=== PATIENT | male | born 1955 | race Caucasian/White ===

== ENCOUNTER → 2020-12-18 10:20 | Outpatient (BNVA) | payer OTHER, SELFPAY | PROVIDERS: PCP Nurse Practitioner Family; Visit Provider Urology | DX: N40.1 Benign prostatic hyperplasia with lower urinary tract symptoms (principal); N13.8 Other obstructive and reflux uropathy; R97.20 Elevated prostate specific antigen [PSA] | CPT/HCPCS: 99212 ==

== ENCOUNTER → 2021-04-12 10:06 | Outpatient (BNVA) | payer OTHER, SELFPAY | PROVIDERS: PCP Nurse Practitioner Family; Visit Provider Urology ==

== ENCOUNTER 2021-05-20 08:47 | Day surgery (SDC) | payer OTHER, SELFPAY ==
[2021-05-13 15:43] VITALS: BMI 27.9
[2021-05-20] VITALS (7 sets, daily range): BP systolic 128–146; BP diastolic 77–87; PULSE 58–90; RESP 12–18; TEMP 36.3–36.5; O2SAT 95–98
[2021-05-20] MEDS: Lactated Ringers 1,000 ML 50 ML IVCONT (09:36)
--- NOTE | 2021-05-20 09:46 | HO.ANESPROP2 ---
HPI - Anesthesia Eval Consult details Narrative: 65 M for laser ablation CAD s/p Stent , September 2020 , saw hospice home health aide 1 month ago . asprin 7 PM last night Reema PMFSH Active Problems Active Problems: All Active Problems (Updated 05/13/21 @ 15:37 by Ashia Gentile RN) BPH w urinary obs/LUTS (Acute) Elevated PSA (Acute) Past Medical History Medical History (Updated 05/13/21 @ 15:37 by Ashia Gentile RN) Elevated PSA Hematospermia Hypothyroid Family History Family history of problems with anesthesia: No Surgical History History of Problems with Anesthesia: No Meds Allergies Allergy/AdvReac Type Severity Reaction Status Date / Time No Known Allergies Allergy Verified 12/18/20 10:52 Active Medications: Current Medications Fentanyl (Fentanyl Citrate/Pf 100 Mcg/2 Ml Vial) 25 mcg IVPUSH Q5M PRN; Protocol PRN Reason: Pain, Moderate (Pain Scale 4-6 Levofloxacin (Levaquin) 500 mg in 100 mls @ 100 mls/hr IV PREOP ONE Stop: 05/20/21 10:11 Lactated Ringer's (Lr) 1,000 mls @ 50 mls/hr IVCONT .Q20H HADLEY Last Admin: 05/20/21 09:36 Dose: 50 mls/hr Documented by: Promethazine HCl 12.5 mg/ (Sodium Chloride) 50.5 mls @ 202 mls/hr IV ONCE PRN PRN Reason: Nausea and Vomiting Home Medications Medication Instructions Recorded Confirmed Last Taken Type levothyroxine 75 mcg capsule 75 mcg PO DAILY 12/18/20 12/21/20 05/20/21 History lipase 3,000-protease PO 12/18/20 12/21/20 Unknown History 9,500-amylase 15,000 unit capsule, delayed rel (Creon) mirtazapine 30 mg tablet 30 mg PO BEDTIME 12/18/20 12/21/20 Unknown History tamsulosin 0.4 mg capsule (Flomax) 0.4 mg PO DAILY 12/18/20 12/21/20 Unknown History Exam Exam Date and Time: May 20, 2021 0946 Height,Weight and Vital Signs: Height 5 ft 10 in Weight 88.451 kg Last Vital Signs Temp 97.6 F 05/20/21 09:15 Pulse 58 01/17/22 09:15 Resp 18 05/20/21 09:15 BP 137/78 05/20/21 09:15 Pulse Ox 98 05/20/21 09:15 Airway Mallampati Class: II TM Dist: >3cm Neck ROM: Full Loose/Missing/Broken Teeth: Yes (Chipped , missing ,fillings ) Heart: rrr Lungs: bl breath sounds Assessment and Plan Final Anesthetic Review Family History of Problems with Anesthesia: No History of Problems with Anesthesia: No NPO: Yes ASA Class: III Final Preanesthetic Review: Meds/Allgs Chart Reviewed and Anes Risks/Benef Reviewed Patient Risk: High Procedure Risk: Intermediate Anesthetic Plan Anesthetic Plan: GA Disposition: Standard PACU
--- NOTE | 2021-05-20 10:09 | P.HPSUR_ITS ---
Pre-Procedural Eval Section A Date of Service: 05/20/21 The patient is an INPATIENT: No Changes since office visit: No Cold of Flu in the past 2 weeks, No New Medical Problems, No Changes in Medication and No Patient answered all questions The History & Physical has been completed within 30 days and I have reviewed it.: No Section B Chief Complaint: benign prostatic hyperplasia Details of Present Illness: Progressive despite medication Relevant Social History: None Present Medications: see Short Stay Collaborative assessment Medical History: No relevant PMH History of Previous Operations: No relevant previous surgery Allergies: Allergies Allergy/AdvReac Type Severity Reaction Status Date / Time No Known Allergies Allergy Verified 12/18/20 10:52 Review of Systems Sugical H&P ROS: Negative: Constitution, Cardiovascular, Respiratory, Neurological, Psychiatric, Hem-Onc, Allergic/Immunologic, Gastrointestinal, Genitourinary, Musculoskeletal, Integumentary, Endocrine and Eyes/Ear s/Nose/Throat Exam Surgical H&P Exam: Normal: HEENT, Normal: Heart, Normal: Lungs, Normal: Extremities, Normal: Abdomen, Normal: Skin and Normal: Neurological Plan Diagnosis/Plan: Unchanged (Laser prostatectomy) I have reviewed the history and physical and performed a pertinent physical examination on my patient. No changes have occurred unless specified.
--- NOTE | 2021-05-20 11:45 | P.OP_ITS ---
Operative Note Operative Note Date of Service: 05/20/21 Narrative: PreOperative Diagnosis: Bladder outlet obstruction Post Operative Diagnosis: Bladder outlet obstruction Procedure: GreenLight laser enucleation of the prostate Surgeon: Dr Richie Rossi Anesthesia: General Indications for procedure: History of bladder outlet obstruction. Treated with alpha-maru and other medications. Still with symptoms. On cystoscopy in office has Large median lobe with bilateral lateral lobe . Recommendation for laser procedure with enucleation of the prostate. Procedure: After informed consent was verified the patient was brought to the operating room and placed in a supine position. Anesthesia was administered per protocol. Patient was placed in modified dorsal lithotomy position and prepped and draped in a sterile fashion. Safety pause time-out was confirmed. Antibiotics have been given. Twenty-four Luxembourgish laser cystoscope was inserted per urethra. No abnormalities found the anterior posterior urethra. The bladder was filled on both ureteric orifices were seen in normal position away from our area of interest. Using a GreenLight laser settings of 80 w incisions were made at the 5 and 7 o'clock position. They were taken down and then laterally on each side. They were brought from the bladder neck down to the level of the veru. These defined the lateral aspects of the median lobe area. The median lobe was ablated and enucleated tissue removed. Median lobe was large and required division down the middle followed by lateral slicing of the prostate into smaller pieces. Once the median lobe area had been cleaned attention was directed to the lateral lobes. We started with the patient's left lateral lobe. Firstly the 05:00 o'clock groove was further developed. This was moved in the lateral position to undermine the tissue on the lateral side. Focus was then placed on the laser at the 1 o'clock position in developing a secondary groove down to the level of bladder fibers. The intervening tissue between these 2 grooves was removed with a combination of enucleation ablation working from the apex toward the bladder neck. Lateral tissue was removed A similar procedure was repeated on the patient's right-hand side. When this was completed debris and pieces of prostate removed from the bladder. Both ureteric orifices were reviewed again in shown to be patent in away from any areas of energy damage. The apical area was reviewed in any stray ooze was controlled. A 22 Luxembourgish 30 cc balloon Snyder catheter was placed over stylet into the bladder. Clear efflux was obtained. 30 cc was placed in the balloon and gentle traction was placed. A snap was used to hold tension once the patient will be moved and transported. Once transportation its finish this novel be removed. A belladonna and opiate suppository was placed for postprocedure pain management. He tolerated procedure well was extubated in the operating and transferred in a stable condition to the recovery area. total energy 259,000 kilojoules, total lasing time 33 minutes Pathology: Prostate tissue Drains: Snyder catheter
[2021-05-20] MEDS: Acetaminophen 325 MG TABLET 650 MG PO (11:55)
[2021-05-20] MEDS: traMADoL HCL 50 MG TABLET PO (11:55)
== END 2021-05-20 13:04 | disposition home or self-care (01) ==
PROVIDERS: PCP Nurse Practitioner Family; Visit Provider Urology
PROC: (CPT 52648; principal; 2021-05-20 10:30)
DX: N40.1 Benign prostatic hyperplasia with lower urinary tract symptoms (principal); N13.8 Other obstructive and reflux uropathy; R97.20 Elevated prostate specific antigen [PSA]
CPT/HCPCS: 52649; 88305; J1100; J1956; J2250; J2370; J2405; J3010

== ENCOUNTER → 2021-05-23 10:05 | Outpatient (BNVA) | payer OTHER, SELFPAY | PROVIDERS: PCP Nurse Practitioner Family; Visit Provider Urology | DX: N13.8 Other obstructive and reflux uropathy (principal) | CPT/HCPCS: 51700; 51798 ==

== ENCOUNTER → 2021-06-20 08:39 | Outpatient (BNVA) | payer OTHER, SELFPAY | PROVIDERS: PCP Nurse Practitioner Family; Visit Provider Urology | DX: N40.1 Benign prostatic hyperplasia with lower urinary tract symptoms (principal); N13.8 Other obstructive and reflux uropathy; R97.20 Elevated prostate specific antigen [PSA] | CPT/HCPCS: 51700; 51798; 99212 ==

== ENCOUNTER 2023-06-02 08:45 | Outpatient (AMB) | payer OTHER, SELFPAY ==
--- NOTE | 2023-06-02 08:47 | MHC.OFFVIS ---
Intake Vital Signs 06/02/23 08:48 Weight 195 lb BP 144/88 H Blood Pressure Location Rt brachial Position Sitting Pulse 82 Pulse Source Pulse Oximeter Pulse Oximetry (%) 98 Oxygen Delivery Method Room Air Intake Visit Reasons: Wheezing Allergies No Known Allergies Allergy (Verified 06/02/23 08:51) Medication List - Last Reconciled 06/02/23 by Keyana Centeno LPN aspirin 81 mg PO DAILY atorvastatin 40 mg PO BEDTIME ciprofloxacin HCl 250 mg PO DAILY 5 days ciprofloxacin HCl 250 mg PO DAILY 5 days finasteride 5 mg PO DAILY 90 days hydrocortisone 2.5% 1 appl VA BID-QID PRN levothyroxine 75 mcg PO DAILY levothyroxine 150 mcg PO DAILY lidocaine 5% 1 appl topical QID PRN [id number]-[id number]-tlajmdy 3,000-9,500- 15,000 unit (Creon) PO metoprolol succinate ER 25 mg PO DAILY mirtazapine 30 mg PO BEDTIME oxybutynin chloride ER 5 mg PO DAILY tamsulosin (Flomax) 0.4 mg PO DAILY tramadol 50 mg PO Q6H PRN tramadol 50 mg PO Q6H PRN HPI Wheezing HPI Details Allan is a pleasant 67 year old male, former smoker with pack year history, quit 30 years ago with underlying COPD and TJ s/p Uvulopalatopharyngoplasty. He was referred by the MD for pulmonary evaluation. He is currently under the care of pulmonary in [facility], where he resides part of the year. He was placed on Trelegy and reports significant improvements in wheezing and denies any dyspnea. He reports prior chest CT for a pulmonary nodule that was being followed. He also states he had a sleep study in 2022 which was reportedly negative for TJ. He continues to report daytime somnolence. He is quite active and denies any respiratory symptoms while exercising. He does report ongoing nasal and intermittent chest congestion. He denies any history of asthma. He denies any occupational exposures, although was in the [place]. He denies any history of allergies. He does have a dog at home. [facility] Medical History Elevated PSA Hematospermia Hypothyroid Social History (Updated 06/02/23 @ 08:55 by Keyana Centeno LPN) Patient Tobacco Use Status: Former Tobacco user Tobacco use type: Cigarette Review of Systems Const Denies chills, Denies excessive sweating, Denies fever(s), Denies headache(s) and Denies night sweats Eyes Denies dry eyes, Denies irritation and Denies itchy eyes ENT Reports Normal hearing present, Denies headache(s), Denies nasal discharge, Denies post nasal drip and Denies sore throat Card Denies chest pain, Denies chest pain at rest, Denies chest pain with activity, Denies claudication, Denies leg edema, Denies dyspnea, Denies dyspnea on exertion, Denies orthopnea and Denies paroxysmal nocturnal dyspnea Resp Denies chest congestion, Denies cough, Denies excessive phlegm production, Denies pain on inspiration, Denies pain with cough, Denies dyspnea, Denies dyspnea on exertion, Denies stridor and Denies wheezing Musc Denies myalgias Neuro Reports Normal hearing present and Denies headache(s) Endo Denies excessive sweating Oleg/Lymph Denies lymphadenopathy Aller/Immun Denies itchy eyes, Denies seasonal rhinorrhea and Denies wheezing Physical Exam Vital Signs: Last Vital Signs Pulse 82 06/02/23 08:48 BP 144/88 H 06/02/23 08:48 Pulse Ox 98 06/02/23 08:48 Oxygen Delivery Method Room Air 06/02/23 08:48 Const General: cooperative, healthy appearing, comfortable, no acute distress, well developed and alert Orientation/consciousness: patient oriented x3 Limitations: no limitations HEENT Head: Yes normal to inspection, Yes normocephalic and Yes atraumatic Ears: hearing grossly normal bilaterally and external ears normal Eyes General: appearance normal, both eyes and all related structures Eyelids: Yes eyelids normal Sclerae: sclerae normal EOM: EOMs intact bilaterally Neck Neck: Yes normal visual inspection and Yes no lymphadenopathy Lymphatic: no lymphadenopathy noted Chest Chest palpation & inspection: normal inspection of the chest Resp Effort & Inspection: normal respiratory effort, able to speak in complete sentences, no audible wheezes, no cough, no stridor, not tachypneic, no tripod positioning and no use of accessory muscles Auscultation: clear to auscultation bilaterally Cardio Jugular venous distension: no JVD Rate: regular rate Rhythm: regular rhythm Skin Other: warm, dry General skin exam: no rashes or lesions noted Neuro General: patient oriented x3 Cranial nerves: Yes Normal hearing present Cognition (Neuro): normal cognition Gait exam (Neuro): Normal gait present Extrem General: Yes normal to inspection, Yes capillary refill normal, Yes no clubbing, cyanosis or edema and Yes no pedal edema Psych Appearance: grossly normal and well kempt Speech and movement: Normal speech and movement present and Clear speech present Affect: normal affect Attitude: cooperative Thought process: Normal thought process present Thought content: Normal thought content present Insight: Good insight present (Psych) Judgement: Good judgement present (Psych) Assessment & Plan Assessment & Plan (1) COPD (chronic obstructive pulmonary disease): Code(s): J44.9 - Chronic obstructive pulmonary disease, unspecified (2) Daytime somnolence: Code(s): R40.0 - Somnolence (3) Pulmonary nodule: Code(s): R91.1 - Solitary pulmonary nodule Plan Ashok reports good control of dyspnea and wheezing with use of Trelegy, which he has been using for the past year. Will send in refills and albuterol to use PRN. Encouraged to take daily and reviewed importance of oral hygiene. In regards to nasal congestion and post nasal drip, will trial a nasal spray. Will send patient for chest CT for evaluation of prior pulmonary nodule and send for PFT to assess severity of COPD. Will also send patient for home sleep study, as he reported prior severe TJ and continues to be symptomatic. All questions were answered and patient is in agreement of plan. Will follow up to review results or sooner if needed. Orders: Orders CT chest wo IV con Today J44.9 - Chronic obstructive pulmonary disease, unspecified, R91.1 - Solitary pulmonary nodule PFT pulmonary function test Today J44.9 - Chronic obstructive pulmonary disease, unspecified RT home sleep study Today R40.0 - Somnolence Medications: New ipratropium bromide administer into each nostril 2 sprays intranasal BID 30 mL 3RF cvlmznidmvg-wziozyuaj-ardbrttj 100-62.5-25 mcg (Trelegy Ellipta) 1 inh inhalation DAILY 60 ea 3RF Coding Level of Care Code New Pt Level 4 (92262) Diagnoses COPD (chronic obstructive pulmonary disease) J44.9 Daytime somnolence R40.0 Pulmonary nodule R91.1
[2023-06-02 08:48] VITALS: BP 144/88; PULSE 82; O2SAT 98
== END 2023-06-02 09:41 | disposition home or self-care (01) ==
PROVIDERS: PCP Nurse Practitioner Family; Referring Provider Nurse Practitioner Family; Visit Provider Nurse Practitioner Family
DX: J44.9 Chronic obstructive pulmonary disease, unspecified (principal); R40.0 Somnolence; R91.1 Solitary pulmonary nodule
CPT/HCPCS: 99204

== ENCOUNTER → 2023-06-02 08:45 | Outpatient (BNVA) | payer OTHER, SELFPAY | PROVIDERS: PCP Nurse Practitioner Family; Visit Provider Nurse Practitioner Family | DX: J44.9 Chronic obstructive pulmonary disease, unspecified (principal); R40.0 Somnolence; R91.1 Solitary pulmonary nodule | CPT/HCPCS: 99202 ==

== ENCOUNTER 2023-06-25 07:27 | Outpatient (REF) | payer OTHER, SELFPAY ==
--- NOTE | ~2023-06-25 | CT_ITS ---
EXAMINATION: CT CHEST WITHOUT CONTRAST CLINICAL INFORMATION: COPD; question pulmonary nodule. COMPARISON: None available. TECHNIQUE: Multidetector volumetric CT imaging of the chest was done. Axial MIP volume rendering provided. Sagittal and coronal reformatted images were obtained. This CT examination was performed using dose optimization techniques as appropriate, variously including the following: *Automated exposure control *Adjustment of mA and/or kV according to patient size (this includes techniques or standardized protocols for targeted exams where dose is matched to indication/reason for exam; i.e. extremities or head) *Use of iterative reconstruction technique DLP: 191 mGy-cm FINDINGS: DIESEL MECHANIC CONSTRUCTION: The lungs are symmetrically well-expanded and grossly clear. There is bibasilar plate-like scar/subsegmental atelectasis, left greater than right. LUNGS: Laterally within the right upper lobe (8:51 and 85), a 3 mm noncalcified subpleural nodule and a 1 mm noncalcified nodule are seen. There are scattered foci of minor scar/subsegmental atelectasis posteriorly within the right upper lobe and at the posterior bases, left greater than right. Within the bilateral lower lobes and to a lesser extent the lower right middle lobe, there is small airway thickening, with associated scattered peribronchiolar groundglass opacities. No mass is seen. The central airways appear patent. MEDIASTINUM: The thyroid is unremarkable. There is no thoracic aortic aneurysm. There are mild atherosclerotic calcifications of the great vessel origins and thoracic aorta. No mediastinal or hilar lymphadenopathy is seen. CORONARY ARTERY CALCIFICATION: Moderate. PLEURA: There is no pleural effusion. No pleural mass or thickening. AXILLA: No lymphadenopathy. UPPER ABDOMEN: The adrenal glands are unremarkable. A benign, simple left renal cyst is partially included in the field of view. OSSEOUS STRUCTURES: There is multi-level thoracic degenerative disc disease and spondylosis. No acute or aggressive osseous abnormality is seen. CT/CT chest wo IV con IMPRESSION: 1. 3 mm and 1 mm noncalcified nodules are seen laterally within the right upper lobe. According to the UPDATED 2017 Fleischner Society recommendations, the advised follow-up imaging for solid nodules < 6 mm is: LOW RISK PATIENT: No routine follow-up. HIGH RISK PATIENT: Optional CT at 12 months. 2. At the bases, there is bilateral bronchiolar wall thickening, with scattered peribronchiolar groundglass opacities. These findings are likely infectious or inflammatory in etiology. Recommend clinical correlation and short-term follow-up CT imaging to ensure regression/resolution. 3. There is bibasilar plate-like scar/subsegmental atelectasis, left greater than right. 4. No thoracic lymphadenopathy or pleural effusion is seen. 5. There are moderate coronary artery atherosclerotic calcifications. 6. There are degenerative changes of the thoracic spine. No aggressive osseous lesion is seen. Fleischner guidelines were followed.
== END 2023-06-25 07:28 | disposition home or self-care (01) ==
LOC: HO.CT 07:27
PROVIDERS: PCP Nurse Practitioner Family; Visit Provider Nurse Practitioner Family
DX: R91.1 Solitary pulmonary nodule (principal); J44.9 Chronic obstructive pulmonary disease, unspecified
CPT/HCPCS: 71250

== ENCOUNTER 2023-07-08 10:13 | Outpatient (REF) | payer OTHER, SELFPAY ==
--- NOTE | 2023-07-08 11:53 | PFT_ITS ---
Flows: FEV1: 123 % of predicted at 3.98 L FVC: 127 % of predicted at 5.36 L FEV1/FVC: 74 % Bronchodilator response: Absent Volumes: No lung volumes measurements available secondary to a technical issue. Diffusion capacity: Normal Impression: No obstructive ventilatory defect. No bronchodilator response. No lung volumes measurements available secondary to a technical issue. MTDD
== END 2023-07-08 10:14 | disposition home or self-care (01) ==
LOC: HO.RESP 10:13
PROVIDERS: PCP Nurse Practitioner Family; Visit Provider Nurse Practitioner Family
DX: J44.9 Chronic obstructive pulmonary disease, unspecified (principal)
CPT/HCPCS: 94010; 94640; 94727; 94729; 99212

== ENCOUNTER → 2023-07-08 11:53 | Outpatient (BNV) | payer OTHER, SELFPAY | PROVIDERS: PCP Nurse Practitioner Family; Visit Provider Internal Medicine Pulmonary Disease | DX: J44.9 Chronic obstructive pulmonary disease, unspecified (principal) | CPT/HCPCS: 94060; 94729 ==

== ENCOUNTER 2023-07-08 13:29 | Outpatient (AMB) | payer OTHER, SELFPAY ==
[2023-07-08 13:32] VITALS: BP 126/70; PULSE 69; O2SAT 100; BMI 26.9
--- NOTE | 2023-07-08 13:32 | MHC.OFFVIS ---
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 Material Control Supervisor: Material Control Supervisor offered & declined Accompanied by: Self / Same As Patient Allergies No Known Allergies Allergy (Verified 07/08/23 13:36) Medication List - Last Reconciled 07/08/23 by Aure Saey LPN aspirin 81 mg PO DAILY atorvastatin 40 mg PO BEDTIME fluticasone furoate-vilanterol 100-25 mcg/dose (Breo Ellipta) 1 inh inhalation DAILY fluticasone propion-salmeterol 100-50 mcg/dose (Wixela Inhub) 1 inh inhalation BID fluticasone propion-salmeterol 113 mcg-14 mcg/actuation (AirDuo Digihaler) 1 inh inhalation BID hydrocortisone 2.5% 1 appl IA BID-QID PRN ipratropium bromide 2 sprays intranasal BID ipratropium-albuterol 20-100 mcg/actuation (Combivent Respimat) 1 puff inhalation BID levothyroxine 75 mcg PO DAILY levothyroxine 150 mcg PO DAILY lidocaine 5% 1 appl topical QID PRN metoprolol succinate ER 25 mg PO DAILY mirtazapine 30 mg PO BEDTIME umeclidinium 62.5 mcg/actuation (Incruse Ellipta) 1 inh inhalation DAILY HPI Wheezing HPI Details Ashok is a pleasant 67 year old male, former smoker with 30 pack year history, quit 30 years ago with underlying COPD and TJ s/p Uvulopalatopharyngoplasty. [facility]. He is currently under the care of pulmonary in [facility], where he resides part of the year. He was placed on Trelegy and reports significant improvements in wheezing and denies any dyspnea. He continues to report intermittent chest congestion. Denies any respiratory symptoms and continues to be quite active. At the last visit, we attempted to send in Trelegy as he responded well, however insurance denied coverage. He continues to use Trelegy from [facility] and will be returning next month, staying until December. Today he presents to review chest CT and PFT. [facility] Medical History Elevated PSA Hematospermia Hypothyroid Social History (Updated 07/08/23 @ 13:45 by Aure Seay LPN) Patient Tobacco Use Status: Former Tobacco user Tobacco use type: Cigarette Smoked in Last 30 Days: No Review of Systems Const Denies chills, Denies excessive sweating, Denies fever(s), Denies headache(s) and Denies night sweats Eyes Denies dry eyes, Denies irritation and Denies itchy eyes ENT Reports Normal hearing present, Denies headache(s), Denies nasal congestion, Denies nasal discharge, Denies post nasal drip and Denies sore throat Card Denies chest pain, Denies chest pain at rest, Denies chest pain with activity, Denies claudication, Denies leg edema, Denies dyspnea, Denies dyspnea on exertion, Denies orthopnea and Denies paroxysmal nocturnal dyspnea Resp Denies cough, Denies excessive phlegm production, Denies pain on inspiration, Denies pain with cough, Denies dyspnea, Denies dyspnea on exertion, Denies stridor and Denies wheezing Musc Denies myalgias Neuro Reports Normal hearing present and Denies headache(s) Endo Denies excessive sweating Oleg/Lymph Denies lymphadenopathy Aller/Immun Denies itchy eyes, Denies seasonal rhinorrhea and Denies wheezing Physical Exam Vital Signs: Last Vital Signs Pulse 69 07/08/23 13:32 BP 126/70 07/08/23 13:32 Pulse Ox 100 07/08/23 13:32 Oxygen Delivery Method Room Air 07/08/23 13:32 BMI result Body Mass Index 26.9 Const General: cooperative, healthy appearing, comfortable, no acute distress, well developed and alert Orientation/consciousness: patient oriented x3 Limitations: no limitations HEENT Head: Yes normal to inspection, Yes normocephalic and Yes atraumatic Ears: hearing grossly normal bilaterally and external ears normal Eyes General: appearance normal, both eyes and all related structures Eyelids: Yes eyelids normal Sclerae: sclerae normal EOM: EOMs intact bilaterally Neck Neck: Yes normal visual inspection and Yes no lymphadenopathy Lymphatic: no lymphadenopathy noted Chest Chest palpation & inspection: normal inspection of the chest Resp Effort & Inspection: normal respiratory effort, able to speak in complete sentences, no audible wheezes, no cough, no stridor, not tachypneic, no tripod positioning and no use of accessory muscles Auscultation: clear to auscultation bilaterally Cardio Jugular venous distension: no JVD Rate: regular rate Rhythm: regular rhythm Skin Other: warm, dry General skin exam: no rashes or lesions noted Neuro General: patient oriented x3 Cranial nerves: Yes Normal hearing present Cognition (Neuro): normal cognition Gait exam (Neuro): Normal gait present Extrem General: Yes normal to inspection, Yes capillary refill normal, Yes no clubbing, cyanosis or edema and Yes no pedal edema Psych Appearance: grossly normal and well kempt Speech and movement: Normal speech and movement present and Clear speech present Affect: normal affect Attitude: cooperative Thought process: Normal thought process present Thought content: Normal thought content present Insight: Good insight present (Psych) Judgement: Good judgement present (Psych) Results Reviewed Results Reviewed: [address] [address] [address] Scan Report Signed Patient: Ashok Glez MR#: [id number] : 1955 Acct:[id number] Age/Sex: 67 / M ADM Date: 06/25/23 Loc: HO.CT Attending Dr: Alix Evans NP Ordering Physician: Alix Evans NP Date of Service: 06/25/23 Procedure(s): CT chest wo IV con Accession Number(s): [id number] cc: LISY JOHNSTON NP; Alix Evans NP~ EXAMINATION: CT CHEST WITHOUT CONTRAST CLINICAL INFORMATION: COPD; question pulmonary nodule. COMPARISON: None available. TECHNIQUE: Multidetector volumetric CT imaging of the chest was done. Axial MIP volume rendering provided. Sagittal and coronal reformatted images were obtained. This CT examination was performed using dose optimization techniques as appropriate, variously including the following: *Automated exposure control *Adjustment of mA and/or kV according to patient size (this includes techniques or standardized protocols for targeted exams where dose is matched to indication/reason for exam; i.e. extremities or head) *Use of iterative reconstruction technique DLP: 191 mGy-cm FINDINGS: DATA SPECIALIST: The lungs are symmetrically well-expanded and grossly clear. There is bibasilar plate-like scar/subsegmental atelectasis, left greater than right. LUNGS: Laterally within the right upper lobe (8:51 and 85), a 3 mm noncalcified subpleural nodule and a 1 mm noncalcified nodule are seen. There are scattered foci of minor scar/subsegmental atelectasis posteriorly within the right upper lobe and at the posterior bases, left greater than right. Within the bilateral lower lobes and to a lesser extent the lower right middle lobe, there is small airway thickening, with associated scattered peribronchiolar groundglass opacities. No mass is seen. The central airways appear patent. MEDIASTINUM: The thyroid is unremarkable. There is no thoracic aortic aneurysm. There are mild atherosclerotic calcifications of the great vessel origins and thoracic aorta. No mediastinal or hilar lymphadenopathy is seen. CORONARY ARTERY CALCIFICATION: Moderate. PLEURA: There is no pleural effusion. No pleural mass or thickening. AXILLA: No lymphadenopathy. UPPER ABDOMEN: The adrenal glands are unremarkable. A benign, simple left renal cyst is partially included in the field of view. OSSEOUS STRUCTURES: There is multi-level thoracic degenerative disc disease and spondylosis. No acute or aggressive osseous abnormality is seen. CT/CT chest wo IV con IMPRESSION: 1. 3 mm and 1 mm noncalcified nodules are seen laterally within the right upper lobe. According to the UPDATED 2017 Fleischner Society recommendations, the advised follow-up imaging for solid nodules < 6 mm is: LOW RISK PATIENT: No routine follow-up. HIGH RISK PATIENT: Optional CT at 12 months. 2. At the bases, there is bilateral bronchiolar wall thickening, with scattered peribronchiolar groundglass opacities. These findings are likely infectious or inflammatory in etiology. Recommend clinical correlation and short-term follow-up CT imaging to ensure regression/resolution. 3. There is bibasilar plate-like scar/subsegmental atelectasis, left greater than right. 4. No thoracic lymphadenopathy or pleural effusion is seen. 5. There are moderate coronary artery atherosclerotic calcifications. 6. There are degenerative changes of the thoracic spine. No aggressive osseous lesion is seen. Fleischner guidelines were followed. Dictated By: Ryan Gunn MD Signed By: <Electronically signed by Ryan Gunn MD in [place]> 06/26/23 6032 DD/ [id number] TD/TT: Aluminum Siding Installer: [place] Assessment & Plan Assessment & Plan (1) COPD (chronic obstructive pulmonary disease): Code(s): J44.9 - Chronic obstructive pulmonary disease, unspecified (2) Daytime somnolence: Code(s): R40.0 - Somnolence (3) Pulmonary nodule: Code(s): R91.1 - Solitary pulmonary nodule Plan Reviewed chest CT which revealed pulmonary nodules <3 mm of RUL and bilateral bronchiolar wall thickening of bilateral bases, with scattered peribronchiolar groundglass opacities. These findings are likely infectious or inflammatory in etiology. Patient reports chest congestion, will send azithromycin and reassess CT for resolution of possible infectious process. Ideally would like to rescan patient in 3 months but will be out of the country until December, so will place order for his return. Reviewed spirometry which did not reveal any obstructive or restrictive defect and no response to bronchodilators. TLC, RV and DLCO elevated suggestive of an obstructive defect. Ashok reports good control of dyspnea and wheezing with use of Trelegy, which he has been using for the past year. Advised to continue and he will obtain refills while in [facility]. All questions were answered and patient is in agreement of plan. Will follow up when he returns in December. Orders: Orders CT chest wo IV con 12/03/23 R91.8 - Other nonspecific abnormal finding of lung field Medications: New azithromycin For 250 mg dose pack: take 500 mg today (day 1), then 250 mg for 4 days (days 2-5) PO 6 tabs 0RF azithromycin For 250 mg dose pack: take 500 mg today (day 1), then 250 mg for 4 days (days 2-5) PO 6 tabs 0RF Coding Level of Care Code Est Pt Level 4 (61214) Diagnoses COPD (chronic obstructive pulmonary disease) J44.9 Daytime somnolence R40.0 Pulmonary nodule R91.1
== END 2023-07-08 14:06 | disposition home or self-care (01) ==
PROVIDERS: PCP Nurse Practitioner Family; Referring Provider Nurse Practitioner Family; Visit Provider Nurse Practitioner Family
DX: J44.9 Chronic obstructive pulmonary disease, unspecified (principal); R40.0 Somnolence; R91.1 Solitary pulmonary nodule
CPT/HCPCS: 99214